=== PATIENT | female | born 1990 | race Caucasian/White ===

== ENCOUNTER 2019-03-02 17:42 | Emergency (ER) | payer MEDICAID ==
[~2019-03-02] VITALS: Ht 170.2 cm; Wt 61.2 kg
[2019-03-02 17:47] VITALS: BP_SYST 122
[2019-03-02] MEDS ORDERED: IPRATROPIUM BROM 0.5 MG/2.5 ML VIAL.NEB (ATROVENT) IH ONE (18:00)
[2019-03-02] MEDS ORDERED: methylPREDNISolone SOD SUCC/PF 62.5 MG/ML VIAL IVP ONE (18:00)
[2019-03-02] MEDS ORDERED: NACL 0.9% 1,000 ML IV ONE (18:00)
[2019-03-02] MEDS ORDERED: FAMOTIDINE PF 20 MG/2 ML VIAL IVP ONE (18:00)
[2019-03-02] MEDS ORDERED: DIPHENHYDRAMINE INJ 50 MG/ML VIAL IVP ONE (18:00)
[2019-03-02] MEDS ORDERED: ALBUTEROL SULFATE 0.083% 2.5 MG/3 ML VIAL.NEB IH ONE (18:00)
== END 2019-03-02 18:55 | disposition home or self-care (01) ==
LOC: SED 17:42
DX: L23.5 Allergic contact dermatitis due to other chemical products (principal)
CPT/HCPCS: 94640; 96374; 96375; 99283; J1200; J2930; J3490; J7030; J7613